=== PATIENT | male | born 1945 | race Two or more races ===

== ENCOUNTER 2019-05-28 13:57 | Outpatient (CLI) | payer MEDICARE, OTHER | END 2019-05-28 23:59 | disposition home or self-care (01) | LOC: RAD 13:57 | PROVIDERS: ATTEND Internal Medicine Interventional Cardiology | DX: J43.2 Centrilobular emphysema (principal); J47.9 Bronchiectasis, uncomplicated; I70.0 Atherosclerosis of aorta; I51.7 Cardiomegaly; I25.10 Atherosclerotic heart disease of native coronary artery without angina pectoris; M47.814 Spondylosis without myelopathy or radiculopathy, thoracic region; R91.1 Solitary pulmonary nodule | CPT/HCPCS: 71250-TC ==